=== PATIENT | female | born 1935 ===

== ENCOUNTER 2019-01-30 15:45 | Emergency (ER) | payer MEDICARE, MEDICAID ==
[2019-01-30 15:45] VITALS: BMI 38.7
--- NOTE | 2019-01-30 16:53 | ED PDOC ---
Lower Extremity Pain/Injury Time Seen by Provider: 01/30/19 16:41 Chief Complaint (Nursing): Lower Extremity Problem/Injury Chief Complaint (Provider): Bilateral Knee Pain History Per: Patient History/Exam Limitations: no limitations Onset/Duration Of Symptoms: Persistent, Worse Since (last night) Current Symptoms Are (Timing): Still Present Additional Complaint(s): 83 year old female presents to the ED for evaluation of chronic bilateral knee pain worsening last night without any improvement from Tramadol or Naproxen yesterday. Denies fever, new injury, or recent trauma. PMD: Abisai Richardson Past Medical History Reviewed: Historical Data, Nursing Documentation, Vital Signs Vital Signs: Last Vital Signs Temp 99.0 F 01/30/19 15:48 Pulse 130 H 01/30/19 15:48 Resp 16 01/30/19 15:48 BP 154/76 H 01/30/19 15:48 Pulse Ox 97 01/30/19 15:48 - Medical History PMH: Arthritis, Asthma, COPD, Diabetes, HTN, Hypercholesterolemia - Surgical History Surgical History: No Surg Hx - Family History Family History: States: Unknown Family Hx - Social History Current smoker - smoking cessation education provided: No Alcohol: None Drugs: Denies - Immunization History Hx Tetanus Toxoid Vaccination: No Hx Influenza Vaccination: Yes Hx Pneumococcal Vaccination: Yes - Home Medications Home Medications: Ambulatory Orders Medication Instructions Recorded Albuterol 0.083% 1 unit NEB PRN PRN 06/17/13 Omeprazole 20 mg PO DAILY 06/17/13 Ranolazine [Ranexa] 500 mg PO Q12 06/17/13 Acetaminophen/Codeine 1 tab PO QID 03/10/17 [Tylenol/Codeine 300 MG/30 MG] Aspirin [Ecotrin] 81 mg PO DAILY 03/10/17 Colchicine [Colcrys] 0.6 mg PO BID 03/10/17 Fluticasone/Vilanterol [Breo 1 each IH DAILY 03/10/17 Ellipta 100-25 Mcg INH] Furosemide [Lasix] 20 mg PO DAILY 03/10/17 Glimepiride [Amaryl] 1 mg PO BID 03/10/17 Ibuprofen [Motrin Tab] 600 mg PO TID 03/10/17 Leflunomide [Arava] 20 mg PO DAILY 03/10/17 Levocetirizine Dihydrochloride 5 mg PO DAILY 03/10/17 [Xyzal] Metformin HCl [Glucophage Xr] 750 mg PO BID 03/10/17 Metoprolol Tartrate [Lopressor] 100 mg PO BID 03/10/17 Valsartan/Hydrochlorothiazide 1 tab PO DAILY 03/10/17 [Valsartan-Hctz 320-12.5 mg Tab] Vit C/E/Zn/Coppr/Lutein/Zeaxan 1 each PO BID 03/10/17 [Preservision Areds 2 Softgel] methIMAzole [Tapazole] 10 mg PO QWKX2 03/10/17 Cephalexin [cephalexin] 500 mg PO BID #8 cap 03/14/17 Meloxicam 7.5 mg PO ONCE #30 tablet 01/30/19 - Allergies Allergies/Adverse Reactions: Allergies Allergy/AdvReac Type Severity Reaction Status Date / Time shrimp Allergy ITCHING Verified 01/30/19 15:47 Review of Systems ROS Statement: Except As Marked, All Systems Reviewed And Found Negative Constitutional: Negative for: Fever Musculoskeletal: Positive for: Other (bilateral knee pain) Physical Exam - Reviewed Nursing Documentation Reviewed: Yes Vital Signs Reviewed: Yes - Physical Exam Appears: Positive for: No Acute Distress Head Exam: Positive for: ATRAUMATIC, NORMOCEPHALIC Skin: Positive for: Normal Color, Warm. Negative for: Rash Eye Exam: Positive for: Normal appearance Neck: Positive for: Normal, Painless ROM Cardiovascular/Chest: Positive for: Regular Rate, Rhythm Respiratory: Positive for: Normal Breath Sounds. Negative for: Respiratory Distress Pulses-Dorsalis Pedis (L): 2+ Pulses-Dorsalis Pedis (R): 2+ Extremity: Positive for: Capillary Refill (less than 2 seconds). Negative for: Normal ROM (ROM limited due to pain in bilateral knees), Calf Tenderness, Deformity (or warmth, or erythema, or crepitus in bilateral knees) Neurological/Psych: Positive for: Awake, Alert, Oriented (x3) - ECG O2 Sat by Pulse Oximetry: 97 (RA) Pulse Ox Interpretation: Normal Medical Decision Making Medical Decision Making: Time: 1646 Initial Impression: bilateral knee pain which appears to be chronic from arthritis Initial Plan: --Will obtain bilateral knee XR to r/o fracture --Toradol 30mg IM Xrays show degenerative joint disease. Will tx with meloxicam Scribe Attestation: Documented by Dayana Hui, acting as a scribe for Gary Heaton MD. Provider Scribe Attestation: All medical record entries made by the Scribe were at my direction and personally dictated by me. I have reviewed the chart and agree that the record accurately reflects my personal performance of the history, physical exam, medical decision making, and the department course for this patient. I have also personally directed, reviewed, and agree with the discharge instructions and disposition. Disposition - Clinical Impression Clinical Impression: Degenerative joint disease - Patient ED Disposition Is Patient to be Admitted: No Counseled Patient/Family Regarding: Studies Performed, Diagnosis, Need For Followup, Rx Given - Disposition Disposition: Routine/Home Disposition Time: 18:10 Condition: FAIR Prescriptions: Meloxicam 7.5 mg PO ONCE #30 tablet Instructions: Osteoarthritis Forms: [employer] (Icelandic) Print Language: WOLOF
[2019-01-31 01:02] VITALS: BP 156/60; PULSE 99; RESP 18; TEMP 99; O2SAT 98
--- NOTE | 2019-01-31 15:46 | RAD ---
Date of service: 01/30/2019 PROCEDURE: Bilateral Knee Radiographs. HISTORY: pain COMPARISON: None. TECHNIQUE: 4 views obtained. FINDINGS: BONES: No fracture or destructive bony lesion identified bilaterally. JOINTS: Symmetric joint space narrowing is appreciated in all 3 joint compartments but seen worst at the medial femorotibial compartments bilaterally and is accompanied by extensive osteophyte throughout development as well. Lesser osteophytosis throughout the remaining 2 compartments bilaterally. Articular cortical sclerosis identified with these findings compatible with advanced osteoarthritis. No subluxation or dislocation bilaterally. SOFT TISSUES: Right Knee: Vascular calcifications are identified posteriorly. Left Knee: Vascular calcifications are identified posteriorly. JOINT EFFUSION: Right Knee: Moderately large suprapatellar bursa effusion. Left Knee: Borderline suprapatellar bursa effusion. OTHER FINDINGS: None. IMPRESSION: No acute fracture or dislocation bilaterally. Bilateral knee advanced osteoarthritis concentrated at the medial femorotibial compartments symmetrically. Mildly large right suprapatellar bursa effusion. Borderline left suprapatellar bursa effusion.
== END 2019-01-31 01:10 | disposition home or self-care (01) ==
LOC: H.ER 15:45
DX: M17.0 Bilateral primary osteoarthritis of knee (principal); E11.9 Type 2 diabetes mellitus without complications; E78.00 Pure hypercholesterolemia, unspecified; I10 Essential (primary) hypertension; Z79.84 Long term (current) use of oral hypoglycemic drugs; J44.9 Chronic obstructive pulmonary disease, unspecified
CPT/HCPCS: 73560; 96372; 99285; J1885